=== PATIENT | male | born 1985 | race African-American/Black ===

== ENCOUNTER 2019-08-07 15:03 | Outpatient (CLI) | payer OTHER ==
[2019-08-07 15:10] VITALS: BP 143/85; TEMP 98.6
== END 2019-08-07 15:35 | disposition home or self-care (01) ==
LOC: INF 15:03
DX: D73.3 Abscess of spleen (principal); B95.62 Methicillin resistant Staphylococcus aureus infection as the cause of diseases classified elsewhere
CPT/HCPCS: 99211

== ENCOUNTER 2019-08-12 10:45 | Outpatient (CLI) | payer OTHER ==
[2019-08-12 10:30] VITALS: BP 153/84; TEMP 98.2
[2019-08-12 11:42] LABS: POTASSIUM 3.8 mmol/L (3.6-5.2)
[2019-08-12 12:14] LABS: PLATELET COUNT 1869 K/uL (142-355)
[2019-08-12 13:20] VITALS: BP 130/84; TEMP 98.4
== END 2019-08-12 20:10 | disposition home or self-care (01) ==
LOC: INF 10:45
PROVIDERS: Internal Medicine
DX: D73.3 Abscess of spleen (principal); B95.62 Methicillin resistant Staphylococcus aureus infection as the cause of diseases classified elsewhere
CPT/HCPCS: 36591; 80048; 80202; 85007; 85027; 86140; 96374

== ENCOUNTER 2019-08-12 11:02 | Outpatient (CLI) | payer OTHER | END 2019-08-12 20:10 | disposition home or self-care (01) | LOC: US 11:02 | DX: D73.3 Abscess of spleen (principal); R60.9 Edema, unspecified; B95.62 Methicillin resistant Staphylococcus aureus infection as the cause of diseases classified elsewhere ==

== ENCOUNTER 2019-08-19 10:29 | Outpatient (CLI) | payer OTHER ==
[2019-08-19 11:30] VITALS: BP 138/84; TEMP 97.5
[2019-08-19 11:40] LABS: POTASSIUM 3.8 mmol/L (3.6-5.2)
[2019-08-19 11:56] LABS: PLATELET COUNT 1622 K/uL (142-355)
[2019-08-19 13:03] VITALS: BP 142/83; TEMP 97.7
== END 2019-08-19 11:30 | disposition home or self-care (01) ==
LOC: INF 10:29
PROVIDERS: Internal Medicine
DX: D73.3 Abscess of spleen (principal); B95.62 Methicillin resistant Staphylococcus aureus infection as the cause of diseases classified elsewhere
CPT/HCPCS: 36591; 80048; 80202; 85007; 85027; 86140; 96374

== ENCOUNTER 2019-08-26 10:37 | Outpatient (CLI) | payer OTHER ==
[2019-08-26 10:43] VITALS: BP 138/80; TEMP 98.7
[2019-08-26 11:25] VITALS: BP 143/83; TEMP 98.7
[2019-08-26 12:26] LABS: POTASSIUM 4.4 mmol/L (3.6-5.2)
[2019-08-26 12:34] LABS: PLATELET COUNT 1122 K/uL (142-355)
== END 2019-08-26 11:25 | disposition home or self-care (01) ==
LOC: INF 10:37
PROVIDERS: Internal Medicine
DX: D73.3 Abscess of spleen (principal); B95.62 Methicillin resistant Staphylococcus aureus infection as the cause of diseases classified elsewhere
CPT/HCPCS: 80048; 80202; 85027; 86140; 96374; 99211

== ENCOUNTER 2019-09-01 23:21 | Emergency (ER) | payer OTHER ==
[~2019-09-01] VITALS: Ht 177.8 cm; Wt 129.3 kg
[2019-09-02 01:11] LABS: POTASSIUM 4.5 mmol/L (3.6-5.2)
[2019-09-02 01:30] LABS: PLATELET COUNT 1128 K/uL (142-355)
[2019-09-02 03:14] VITALS: BP 152/92; TEMP 98.2
== END 2019-09-02 03:16 | disposition home or self-care (01) ==
LOC: ED 23:21
PROVIDERS: Family Medicine
DX: M10.9 Gout, unspecified (principal)
CPT/HCPCS: 36415; 80053; 83605; 84550; 85027; 85651; 87040; 99283

== ENCOUNTER 2019-09-02 09:07 | Outpatient (CLI) | payer OTHER ==
[2019-09-02 09:15] VITALS: BP 132/70; TEMP 98.2
[2019-09-02 10:11] LABS: PLATELET COUNT 1086 K/uL (142-355)
[2019-09-02 10:59] LABS: POTASSIUM 4.7 mmol/L (3.6-5.2)
== END 2019-09-02 10:00 | disposition home or self-care (01) ==
LOC: INF 09:07
PROVIDERS: Internal Medicine Infectious Disease
DX: D73.3 Abscess of spleen (principal); B95.62 Methicillin resistant Staphylococcus aureus infection as the cause of diseases classified elsewhere
CPT/HCPCS: 80048; 80202; 85027; 86140; 96374; 99211

== ENCOUNTER 2019-09-09 10:45 | Outpatient (CLI) | payer OTHER ==
[2019-09-09 10:50] VITALS: BP 138/82; TEMP 98.1
[2019-09-09 11:40] VITALS: BP 130/75; TEMP 98.2
[2019-09-09 12:26] LABS: POTASSIUM 4.4 mmol/L (3.6-5.2)
[2019-09-09 12:31] LABS: PLATELET COUNT 1121 K/uL (142-355)
== END 2019-09-09 21:59 | disposition home or self-care (01) ==
LOC: INF 10:45
PROVIDERS: Internal Medicine
DX: D73.3 Abscess of spleen (principal); B95.62 Methicillin resistant Staphylococcus aureus infection as the cause of diseases classified elsewhere; R60.9 Edema, unspecified
CPT/HCPCS: 80048; 80202; 85027; 86140; 96374; 99211

== ENCOUNTER 2021-08-08 | Emergency (ER) | payer OTHER ==
[~2021-08-08] VITALS: Ht 177.8 cm; Wt 141.1 kg
[2021-08-08 02:55] VITALS: BP 124/66; TEMP 97.5
[2021-08-08 06:33] LABS: PLATELET COUNT 1325 K/uL (142-355)
== END 2021-08-08 03:00 | disposition home or self-care (01) ==
LOC: ED
PROVIDERS: Emergency Medicine
DX: R10.84 Generalized abdominal pain (principal)
CPT/HCPCS: 36415; 80053; 81000; 85008; 85027; 96360; 96375; 99284; J1885; J2405